=== PATIENT | female | born 1970 | race Two or more races ===

== ENCOUNTER 2022-11-17 13:10 | Emergency (ER) | payer MEDICAID ==
[~2022-11-17] VITALS: Ht 160 cm; Wt 80.0 kg
[2022-11-17 13:16] VITALS: TEMP 97.9; O2SAT 97
[2022-11-17 13:45] VITALS: BP 132/80; PULSE 86; RESP 16
[2022-11-17] MEDS ORDERED: KETOROLAC 60MG/2ML VIAL IM ONE (13:45)
[2022-11-17] MEDS ORDERED: CYCLOBENZAPRINE 10MG TABLET PO ONE (13:45)
[2022-11-17] MEDS ORDERED: IBUP-2028 MT (15:08)
[2022-11-17] MEDS ORDERED: METH-653 MT (15:08)
== END 2022-11-17 15:24 | disposition home or self-care (01) ==
LOC: ER 13:10
DX: M25.511 Pain in right shoulder (principal); E11.9 Type 2 diabetes mellitus without complications; V99.XXXA Unspecified transport accident, initial encounter; Y93.89 Activity, other specified; Y92.89 Other specified places as the place of occurrence of the external cause; Y99.8 Other external cause status
CPT/HCPCS: 99284; 71045; 81025; 73030; 96372; J1885